=== PATIENT | male | born 1995 | race Hispanic/Latino ===

== ENCOUNTER 2017-02-11 03:43 | Emergency (ER) | payer SELFPAY ==
--- NOTE | 2017-02-11 03:53 | ED PDOC ---
HPI: Psych/Substance Abuse Time Seen by Provider: 02/11/17 03:49 Chief Complaint (Provider): etoh History Per: Patient, EMS Additional Complaint(s): BIBA for etoh, patient was found intoxicated in public. He offers no complaints upon arrival. Past Medical History Reviewed: Historical Data, Nursing Documentation, Vital Signs - Medical History PMH: No Chronic Diseases - Family History Family History: States: No Known Family Hx - Social History Current smoker - smoking cessation education provided: No Alcohol: Social Drugs: Denies - Allergies Allergies/Adverse Reactions: Allergies Allergy/AdvReac Type Severity Reaction Status Date / Time No Known Allergies Allergy Verified 02/11/17 03:53 Review of Systems ROS Statement: Except As Marked, All Systems Reviewed And Found Negative Psych: Positive for: Other (etoh) Physical Exam - Reviewed Nursing Documentation Reviewed: Yes Vital Signs Reviewed: Yes - Physical Exam Appears: Positive for: Well, Non-toxic, No Acute Distress Head Exam: Positive for: NORMAL INSPECTION Skin: Negative for: Rash Eye Exam: Positive for: Normal appearance Cardiovascular/Chest: Positive for: Regular Rate, Rhythm Respiratory: Positive for: Normal Breath Sounds Neurologic/Psych: Positive for: Alert, Oriented, Other (intoxicated, answers questions appropriately) - ECG O2 Sat by Pulse Oximetry: 98 Pulse Ox Interpretation: Normal Medical Decision Making Medical Decision Makin21 year old intoxicated male Plan: BAL Fingerstick 4:22: BAL is 295, fingerstick is 105, patient is asleep, arousable, vital signs are stable, no airway compromise 6:00 am: patient is awake, alert, steady gait, stable for discharge. Disposition - Clinical Impression Clinical Impression: Alcohol intoxication - Patient ED Disposition Is Patient to be Admitted: No Counseled Patient/Family Regarding: Diagnosis, Need For Followup - Disposition Disposition: Routine/Home Disposition Time: 06:00 Condition: STABLE Instructions: Alcohol Intoxication (ED)
[2017-02-11 04:24] VITALS: BP 138/93; PULSE 97; RESP 18; TEMP 98.9; O2SAT 98; BMI 24.3
== END 2017-02-11 04:45 | disposition home or self-care (01) ==
LOC: H.ER 03:43
DX: F10.129 Alcohol abuse with intoxication, unspecified (principal)
CPT/HCPCS: 99282; G0480